=== PATIENT | female | born 1990 | race African-American/Black ===

== ENCOUNTER 2024-03-27 13:15 | Emergency (ER) | payer MEDICAID ==
[~2024-03-27] VITALS: Ht 167.6 cm; Wt 90.7 kg
[2024-03-27] MEDS ORDERED: PRED50TA PO (14:49)
[2024-03-27] MEDS ORDERED: predniSONE 20 MG TABLET ONE (15:13)
[2024-03-27] MEDS: predniSONE 50 MG TABLET PO ONE (15:15)
[2024-03-27 15:19] VITALS: BP 123/87; TEMP 97.9; O2SAT 98
== END 2024-03-27 15:19 | disposition home or self-care (01) ==
LOC: ER 13:40
DX: J45.901 Unspecified asthma with (acute) exacerbation (principal); R06.02 Shortness of breath; R07.89 Other chest pain; Z79.52 Long term (current) use of systemic steroids
CPT/HCPCS: 99283; 71045; 93005; J7512

== ENCOUNTER 2024-04-19 06:02 | Emergency (ER) | payer MEDICAID ==
[~2024-04-19] VITALS: Ht 167.6 cm; Wt 90.7 kg
[~2024-04-19 06:02] MED LIST: PRED50TA PO
[2024-04-19] MEDS ORDERED: ALBUTEROL FS 2.5 MG/0.5 ML VIAL.NEB ONE (06:24)
[2024-04-19 06:29] VITALS: O2SAT 99
[2024-04-19 06:32] VITALS: O2SAT 99
[2024-04-19] MEDS: ALBUTEROL FS 2.5 MG/0.5 ML VIAL.NEB NEB ONE (06:33)
[2024-04-19 06:36] VITALS: O2SAT 100
[2024-04-19 07:14] VITALS: BP 124/84; TEMP 98.1; O2SAT 100
== END 2024-04-19 07:15 | disposition home or self-care (01) ==
LOC: ER 06:11
DX: R06.00 Dyspnea, unspecified (principal); R06.02 Shortness of breath; J45.909 Unspecified asthma, uncomplicated; Z79.52 Long term (current) use of systemic steroids

== ENCOUNTER 2024-04-22 08:26 | Emergency (ER) | payer MEDICAID ==
[~2024-04-22] VITALS: Ht 167.6 cm; Wt 90.7 kg
[2024-04-22] MEDS ORDERED: predniSONE 20 MG TABLET ONE (08:50)
[2024-04-22] MEDS: ALBUTEROL FS 2.5 MG/3 ML VIAL.NEB NEB ONE (08:53)
[2024-04-22] MEDS: IPRATROPIUM NEB FS 0.5 MG/2.5 ML AMPUL.NEB NEB ONE (08:53)
[2024-04-22 08:54] VITALS: O2SAT 99
[2024-04-22] MEDS: predniSONE 20 MG TABLET PO ONE (08:54)
[2024-04-22] MEDS ORDERED: IPRATROPIUM NEB FS 0.5 MG/2.5 ML AMPUL.NEB ONE ×2 (08:55→09:09)
[2024-04-22] MEDS ORDERED: ALBUTEROL FS 2.5 MG/3 ML VIAL.NEB ONE ×2 (08:55→09:09)
[2024-04-22 09:23] VITALS: O2SAT 99
[2024-04-22] MEDS ORDERED: ALBU18HF2 INH (09:33)
[2024-04-22] MEDS ORDERED: PRED20TA PO (09:33)
[2024-04-22 09:44] VITALS: BP 142/77; TEMP 98.3; O2SAT 98
== END 2024-04-22 09:44 | disposition home or self-care (01) ==
LOC: ER 08:30
DX: J45.901 Unspecified asthma with (acute) exacerbation (principal); Z79.52 Long term (current) use of systemic steroids
CPT/HCPCS: 99283; 94640; J7512

== ENCOUNTER 2024-04-24 23:35 | Emergency (ER) | payer MEDICAID ==
[~2024-04-24] VITALS: Ht 167.6 cm; Wt 104.3 kg
[~2024-04-24 23:35] MED LIST changes: +ALBU18HF2 INH; +PRED20TA PO
[2024-04-25 00:24] VITALS: BP 135/85; TEMP 98
[2024-04-25 00:51] VITALS: O2SAT 99
[2024-04-25] MEDS: ALBUTEROL FS 2.5 MG/0.5 ML VIAL.NEB NEB ONE (00:51)
[2024-04-25] MEDS ORDERED: ALBUTEROL FS 2.5 MG/0.5 ML VIAL.NEB ONE (00:53)
[2024-04-25 01:03] VITALS: O2SAT 100
== END 2024-04-25 02:26 | disposition left against medical advice (07) ==
LOC: ER 23:42
DX: J98.01 Acute bronchospasm (principal); Z79.52 Long term (current) use of systemic steroids; Z20.822 Contact with and (suspected) exposure to COVID-19
CPT/HCPCS: 71045-TC

== ENCOUNTER 2024-10-25 20:40 | Emergency (ER) | payer MEDICAID ==
[~2024-10-25] VITALS: Ht 167.6 cm; Wt 105.2 kg
[2024-10-25] MEDS ORDERED: TDAP [DIPH/PERTUSSIS/TET] 0.5 ML VIAL IM ONE (21:48)
[2024-10-25] MEDS: TDAP [DIPH/PERTUSSIS/TET] 0.5 ML VIAL IM ONE (21:50)
[2024-10-25] MEDS: BACI/NEOM/POLY B OINT PKT 1 UDPKT PACKET TP ONE (21:51)
[2024-10-25] MEDS: LIDOCAINE HCL/PF 1% 30 ML VIAL TP ONE (21:51)
[2024-10-25] MEDS ORDERED: MUPI15CR TP (22:02)
[2024-10-25 22:34] VITALS: BP 128/79; TEMP 98.1; O2SAT 98
== END 2024-10-25 22:34 | disposition home or self-care (01) ==
LOC: ER 20:45
DX: S61.217A Laceration without foreign body of left little finger without damage to nail, initial encounter (principal); J45.909 Unspecified asthma, uncomplicated; Z79.52 Long term (current) use of systemic steroids; W22.8XXA Striking against or struck by other objects, initial encounter; Y93.89 Activity, other specified; Y92.000 Kitchen of unspecified non-institutional (private) residence as the place of occurrence of the external cause; Y99.8 Other external cause status
CPT/HCPCS: 12001; 73130; 90471; 90715; 99283; J3490